=== PATIENT | female | born 1960 | race African-American/Black ===

== ENCOUNTER 2024-03-06 22:49 | Emergency (ER) | payer MEDICAID ==
[~2024-03-06] VITALS: Ht 162.6 cm; Wt 165.0 kg
[~2024-03-06 22:49] MED LIST: ALLO-52 PO; AMLO1TAB22 PO; ASPI-543 PO; AUG875T PO; BUSP5TAB78 PO; CARI-578 PO; FLUO10TA18 PO; FURO40TA4 PO; GABA-1251 PO; HYDR-2595 PO; MORP30TA PO; OMEP20TA PO; OXY10CRT PO; PANT1INJ3 PO; PRED20TA2 PO
[2024-03-06 22:55] VITALS: PULSE 179; RESP 27; O2SAT 95
[2024-03-06] MEDS: KETAMINE 50mg/ML 10ml Vial (500mg/10ml) IV ONE (22:56)
[2024-03-06 23:17] LABS: Basophils # (auto) 0 10 ^3/uL (0-0.2); Eosinophils # (auto) 0 10 ^3/uL (0-0.8); Hemoglobin 17.3 g/dL (12.2-16.2)
[2024-03-06 23:19] LABS: Basophils % (auto) 0.3 % (0.0-2.0); Lymphocytes # (auto) 0.5 10 ^3/uL (0.4-5.4); Lymphocytes % (auto) 14.9 % (10.0-50.0); Mean Corpuscular Hemoglobin 31.2 pg (28.0-32.0); Mean Corpuscular Hgb Conc. 32.7 g/dL (32.0-36.0); Mean Corpuscular Volume 95.3 fL (80.0-100.0); Monocytes # (auto) 0.3 10 ^3/uL (0-1.3); Monocytes % (auto) 9.8 % (0.0-12.0); Neutrophils # (auto) 2.4 10 ^3/uL (1.6-8.6); Nucleated Red Blood Cells % 0.7 %; Platelet Count (auto) 86 10^3/uL (140-450); Red Blood Cells 5.56 10^6/uL (4.0-5.20); Red Cell Distribution Width 23.2 % (11.8-14.3); White Blood Cell 3.2 10^3/uL (4.4-10.8)
[2024-03-06] MEDS: IPRATROPIUM BROM 0.5 MG/2.5ML INH SOL NEB ONE (23:23)
[2024-03-06] MEDS: ALBUTEROL SULF 2.5 MG/0.5ML(0.5%) NEB SOLN NEB ONE (23:23)
[2024-03-06] MEDS: FUROSEMIDE 40 MG/4 ML VIAL IV ONE (23:36)
[2024-03-06] MEDS: dilTIAZem 125mg/125ml BAG KIT 125 ML IV ONE (23:37)
[2024-03-06 23:45] LABS: Alanine Aminotransferase 22 U/L (7-40); Albumin 4.7 g/dL (3.2-4.8); Alkaline Phosphatase 112 U/L (46-116); Anion Gap 4 (5-15); Aspartate Aminotransferase 18 U/L (13-40); BUN/Creatinine Ratio 20.3 (10.0-20.0); Bilirubin, Total 3.3 mg/dL (0.2-1.0); Blood Urea Nitrogen 26 mg/dL (9-23); Calcium 9.8 mg/dL (8.7-10.4); Carbon Dioxide 27 mmol/L (20-30); Chloride 105 mmol/L (98-107); Glucose 127 mg/dL (74-106); Potassium 4.2 mmol/L (3.5-5.1); Sodium 136 mmol/L (136-145)
[2024-03-06 23:46] LABS: Total Protein 8.4 g/dL (5.7-8.2)
[2024-03-07] VITALS (13 sets, daily range): BP systolic 95–121; BP diastolic 61–79; PULSE 88–107; RESP 15–20; TEMP 98; O2SAT 75–97
[2024-03-07 00:02] LABS: Lactic Acid w/Reflex 2.9 mmol/L (0.4-2.0)
[2024-03-07 00:10] LABS: Urine Bacteria None Seen /hpf (None Seen)
[2024-03-07 00:20] LABS: Urine Blood 2+ /uL (Negative); Urine Budding Yeast OCCASIONAL /hpf (None Seen); Urine Clarity Turbid (Clear); Urine Color Yellow (Yellow); Urine Hyaline Cast MANY /lpf (0 - 2); Urine Mucus FEW (None Seen); Urine Protein, UAD 2+ (Negative); Urine Specific Gravity 1.018 (1.001-1.035); Urine Urobilinogen 2 mg/dL (Negative); Urine WBC 14 /hpf (0 - 5); Urine pH 5.5 (5.0-9.0)
[2024-03-07] MEDS: KETAMINE 50mg/ML 10ml Vial (500mg/10ml) IV ONE (00:42)
[2024-03-07] MEDS: AZITHROMYCIN 500MG/ 250ML 250 ML IV ONE (02:06)
[2024-03-07] MEDS: CEFEPIME 2GM/50ML NS 50 ML IV ONE (02:06)
[2024-03-07] MEDS: FUROSEMIDE 100 MG/10ML VIAL IV ONE (02:08)
[2024-03-07] MEDS ORDERED: hydrALAZINE HCL 20 MG/ML VL IV PRN (02:45)
[2024-03-07] MEDS ORDERED: DOCUSATE SOD 100 MG CAP PO PRN (02:45)
[2024-03-07] MEDS ORDERED: MORPHINE SULFATE INJ 2 MG/ml SYRG IV PRN (02:45)
[2024-03-07] MEDS ORDERED: NITROGLYCERIN 0.4 MG SL TAB SL PRN (02:45)
[2024-03-07] MEDS ORDERED: ONDANSETRON HCL 4 MG/2 ML VIAL IV PRN (02:45)
[2024-03-07] MEDS ORDERED: ACETAMINOPHEN 325 MG TAB PO PRN (02:45)
[2024-03-07 04:32] LABS: Basophils # (auto) 0 10 ^3/uL (0-0.2); Basophils % (auto) 0.1 % (0.0-2.0); Eosinophils # (auto) 0 10 ^3/uL (0-0.8); Hematocrit 48.2 % (36.0-46.0); Hemoglobin 15.8 g/dL (12.2-16.2); Lymphocytes # (auto) 0.1 10 ^3/uL (0.4-5.4); Lymphocytes % (auto) 1.9 % (10.0-50.0); Mean Corpuscular Hgb Conc. 32.8 g/dL (32.0-36.0); Mean Corpuscular Volume 94.5 fL (80.0-100.0); Neutrophils # (auto) 4.6 10 ^3/uL (1.6-8.6); Nucleated Red Blood Cells % 0.2 %; Platelet Count (auto) 85 10^3/uL (140-450); Red Blood Cells 5.11 10^6/uL (4.0-5.20); Red Cell Distribution Width 21.8 % (11.8-14.3); White Blood Cell 5.7 10^3/uL (4.4-10.8)
[2024-03-07 04:48] LABS: Alanine Aminotransferase 20 U/L (7-40); Alkaline Phosphatase 96 U/L (46-116); Aspartate Aminotransferase 16 U/L (13-40); BUN/Creatinine Ratio 21.6 (10.0-20.0); Blood Urea Nitrogen 27 mg/dL (9-23); Calcium 9.9 mg/dL (8.7-10.4); Carbon Dioxide 32 mmol/L (20-30); Chloride 105 mmol/L (98-107); Glucose 114 mg/dL (74-106); Potassium 3.9 mmol/L (3.5-5.1); Sodium 136 mmol/L (136-145)
[2024-03-07 04:49] LABS: Bilirubin, Total 3.3 mg/dL (0.2-1.0); Total Protein 7.3 g/dL (5.7-8.2)
[2024-03-07 04:51] LABS: Anion Gap 0 (5-15)
[2024-03-07] MEDS: methylPREDNISolone SOD SUCC 125 MG/2 ML VL IV SCH ×2 (06:06→08:45)
[2024-03-07] MEDS: SODIUM CHLOR 0.9% PF (SALINE LOCK) 10ML VIAL/SYR IV SCH (06:06)
[2024-03-07] MEDS: Surgicel PA 2X3 INCH TOP ONE (06:35)
[2024-03-07 09:08] LABS: Amphetamine Screen, Urine Neg (NEGATIVE); Barbiturate Scree,Urine Neg (NEGATIVE); Benzodiazephine Screen, Urine Neg (NEGATIVE); Cannabinoid Screen, Urine Pos (NEGATIVE); Cocaine Screen, Urine Neg (NEGATIVE); Opiate Scree,Urine Pos (NEGATIVE); Phencyclidine Screen, Urine Neg (NEGATIVE)
[2024-03-07 09:31] LABS: Base Excess 7.3 mmol/L (-2.0-3.0)
[2024-03-07] MEDS: ASPirin 81 mg TAB PO SCH (10:00)
[2024-03-07] MEDS: CARVEDILOL 12.5 MG TAB PO SCH (10:00)
[2024-03-07 10:15] LABS: COVID19 ANTIGEN SOFIA FIA NEGATIVE (NEGATIVE)
[2024-03-07 10:16] LABS: Rapid Influenza A Negative (Negative); Rapid Influenza B Negative (Negative)
[2024-03-07] MEDS: FAMOTIDINE (10MG/ML) 2ML VL IV SCH (10:18)
[2024-03-07] MEDS: FUROSEMIDE 40 MG/4 ML VIAL IV SCH (10:19)
[2024-03-07] MEDS ORDERED: FURO80TA3 PO (10:58)
[2024-03-07] MEDS ORDERED: FLUO1TAB14 PO (10:58)
[2024-03-07] MEDS ORDERED: AMLO1TAB23 PO (10:58)
[2024-03-07] MEDS ORDERED: ALL100T PO (10:58)
[2024-03-07] MEDS ORDERED: POTA-220 PO (10:59)
[2024-03-07] MEDS: NOREPINEPHRINE 8 MG/250ML KIT 250 ML IV SCH (12:45)
[2024-03-07] MEDS: AMIODARONE BOLUS KIT 100 ML IV ONE (13:45)
[2024-03-07] MEDS: AMIODARONE 450mg/250ml AE 250 ML IV SCH ×2 (14:08→20:30)
[2024-03-07] MEDS: KETAMINE 50mg/ML 10ml Vial 10 ML ONE (15:37)
[2024-03-07] MEDS: OXYCODONE W/ ACETAMINOPHEN 5/325MG TABLET PO PRN (17:36)
[2024-03-07] MEDS: LORazepam 2MG/ML-1ML VIAL IV ONE (20:01)
[2024-03-07] MEDS: methylPREDNISolone SOD SUCC 40 MG/ML VL IV SCH (22:00)
[2024-03-07] MEDS: AZITHROMYCIN 500MG/ 250ML 250 ML IV SCH (22:00)
[2024-03-08] VITALS (7 sets, daily range): BP systolic 118; BP diastolic 76; PULSE 94–108; RESP 20–22; TEMP 98.6; O2SAT 92–99
[2024-03-08] MEDS ORDERED: LORazepam 2MG/ML-1ML VIAL IV PRN (02:00)
[2024-03-08 04:18] LABS: Hematocrit 46.6 % (36.0-46.0); Hemoglobin 15.6 g/dL (12.2-16.2); Mean Corpuscular Hemoglobin 31.3 pg (28.0-32.0); Mean Corpuscular Hgb Conc. 33.6 g/dL (32.0-36.0); Mean Corpuscular Volume 93.2 fL (80.0-100.0); Platelet Count (auto) 68 10^3/uL (140-450); Red Cell Distribution Width 21.9 % (11.8-14.3)
[2024-03-08 04:28] LABS: Alanine Aminotransferase 21 U/L (7-40); Albumin 4.2 g/dL (3.2-4.8); Alkaline Phosphatase 92 U/L (46-116); Anion Gap 1 (5-15); Aspartate Aminotransferase 20 U/L (13-40); BUN/Creatinine Ratio 24.4 (10.0-20.0); Blood Urea Nitrogen 33 mg/dL (9-23); Carbon Dioxide 33 mmol/L (20-30); Chloride 104 mmol/L (98-107); Glucose 104 mg/dL (74-106); Potassium 4.2 mmol/L (3.5-5.1); Sodium 138 mmol/L (136-145)
[2024-03-08 04:29] LABS: Bilirubin, Total 3.8 mg/dL (0.2-1.0); Total Protein 7.3 g/dL (5.7-8.2)
[2024-03-08 04:30] LABS: Band Neutrophils % (manual) 0; Basophils % (manual) 0 (0.0-2.0); Blast Cells 0; Eosinophils % (manual) 0 (0-7); Metamyelocytes % 0; Myelocytes % 0; Promyelocytes % 0; Reactive Lymphocytes 0
[2024-03-08 04:53] LABS: Lymphocytes % (manual) 9 (10.0-50.0); Monocytes % (manual) 10 (0-12)
[2024-03-08 04:54] LABS: Anisocytosis Slight; Large Platelets MODERA; Platelet Estimate Decrea; Target Cell FEW
[2024-03-08 04:55] LABS: Stomatocytes Few
[2024-03-08] MEDS: ALBUTEROL SULF 2.5 MG/0.5ML(0.5%) NEB SOLN NEB PRN (06:13)
[2024-03-08] MEDS: IPRATROPIUM BROM 0.5 MG/2.5ML INH SOL NEB PRN (06:13)
[2024-03-08] MEDS: FLUoxetine HCL 20 MG CAP PO SCH (10:05)
[2024-03-08] MEDS: NICOTINE 14 MG/24HR TOPICAL PATCH TD SCH (10:07)
== END 2024-03-08 16:09 | disposition left against medical advice (07) ==
LOC: ER 22:49 → EDBD 22:49 → UNDOADMIN 03-07 02:32 → TELE 03-07 02:32 → ER 03-08 16:09
DX: J96.20 Acute and chronic respiratory failure, unspecified whether with hypoxia or hypercapnia (principal); I50.43 Acute on chronic combined systolic (congestive) and diastolic (congestive) heart failure; J18.9 Pneumonia, unspecified organism; E87.79 Other fluid overload; I48.91 Unspecified atrial fibrillation; J44.0 Chronic obstructive pulmonary disease with (acute) lower respiratory infection; J96.21 Acute and chronic respiratory failure with hypoxia; Z79.82 Long term (current) use of aspirin; Z79.899 Other long term (current) drug therapy; Z88.5 Allergy status to narcotic agent; Z20.822 Contact with and (suspected) exposure to COVID-19
CPT/HCPCS: 36415; 36556; 36600; 71045; 73590; 78582; 80053; 80307; 81001; 82805; 83036; 83605; 83735; 83880; 84443; 84484; 85007; 85025; 85027; 85379; 87086; 87426; 87804; 93005; 93970; 94640; 94660; 96365; 96367; 96375; 99291; 99292; J0282; J0456; J0692; J1940; J2060; J2919; J3490; G0378

== ENCOUNTER 2024-03-30 00:45 | Inpatient (IN) | payer MEDICAID ==
[~2024-03-30] VITALS: Ht 172.7 cm; Wt 123.0 kg
[2024-03-30] VITALS (53 sets, daily range): BP systolic 40–196; BP diastolic 20–164; PULSE 99–157; RESP 13–97; TEMP 97–98.2; O2SAT 59–100
[2024-03-30] MEDS: ALBUMIN 25% 100 ML IV SCH
[~2024-03-30 00:45] MED LIST changes: +ALL100T PO; -ALLO-52 PO; -AMLO1TAB22 PO; +AMLO1TAB23 PO; -AUG875T PO; -CARI-578 PO; -FLUO10TA18 PO; +FLUO1TAB14 PO; -FURO40TA4 PO; +FURO80TA3 PO; -HYDR-2595 PO; -MORP30TA PO; -PANT1INJ3 PO; +POTA-220 PO; -PRED20TA2 PO
[2024-03-30 01:18] LABS: Basophils # (auto) 0 10 ^3/uL (0-0.2); Basophils % (auto) 0.3 % (0.0-2.0); Eosinophils # (auto) 0 10 ^3/uL (0-0.8); Eosinophils % (auto) 0.1 % (0.0-7.0); Hematocrit 50.2 % (36.0-46.0); Hemoglobin 17.4 g/dL (12.2-16.2); Lymphocytes # (auto) 0.2 10 ^3/uL (0.4-5.4); Mean Corpuscular Hemoglobin 32.5 pg (28.0-32.0); Mean Corpuscular Hgb Conc. 34.7 g/dL (32.0-36.0); Mean Corpuscular Volume 93.6 fL (80.0-100.0); Monocytes # (auto) 0.5 10 ^3/uL (0-1.3); Monocytes % (auto) 10.8 % (0.0-12.0); Neutrophils % (auto) 84.8 % (37.0-80.0); Platelet Count (auto) 197 10^3/uL (140-450); Red Blood Cells 5.36 10^6/uL (4.0-5.20); Red Cell Distribution Width 23.3 % (11.8-14.3); White Blood Cell 4.8 10^3/uL (4.4-10.8)
[2024-03-30] MEDS: SODIUM CHLORIDE 0.9% 1,000 ML IV ONE ×3 (01:19→20:00)
[2024-03-30 01:34] LABS: Alanine Aminotransferase 13 U/L (7-40); Alkaline Phosphatase 180 U/L (46-116); Anion Gap 7 (5-15); Aspartate Aminotransferase 15 U/L (13-40); BUN/Creatinine Ratio 20.9 (10.0-20.0); Bilirubin, Total 4.8 mg/dL (0.2-1.0); Calcium 9.7 mg/dL (8.7-10.4); Carbon Dioxide 27 mmol/L (20-30); Chloride 92 mmol/L (98-107); Glucose 106 mg/dL (74-106); Lipase 21 U/L (12-53); Sodium 126 mmol/L (136-145); Total Protein 7.9 g/dL (5.7-8.2)
[2024-03-30] MEDS: ONDANSETRON HCL 4 MG/2 ML VIAL IV ONE (01:40)
[2024-03-30] MEDS: VANCOMYCIN 1GM/200ML 200 ML IV ONE (01:40)
[2024-03-30 01:41] LABS: Blood Urea Nitrogen 104 mg/dL (9-23); Potassium 6.8 mmol/L (3.5-5.1)
[2024-03-30 02:10] LABS: Urine Bacteria FEW /hpf (None Seen); Urine Blood Negative /uL (Negative); Urine Budding Yeast MODERATE /hpf (None Seen); Urine Clarity Turbid (Clear); Urine Color Dark-Yellow (Yellow); Urine Hyaline Cast MOD /lpf (0 - 2); Urine Mucus FEW (None Seen); Urine Protein, UAD 1+ (Negative); Urine Specific Gravity 1.021 (1.001-1.035); Urine Urobilinogen 8 mg/dL (Negative); Urine WBC 1 /hpf (0 - 5)
[2024-03-30] MEDS: SODIUM BICARB 8.4% 50Meq/50ml SYR Vial IV ONE (02:52)
[2024-03-30] MEDS: DEXTROSE (50%) 50ML SYRG IV ONE ×4 (02:52→13:00)
[2024-03-30] MEDS: CALCIUM GLUC 1,000mg/50ml-NS 50 ML IV SCH (02:52)
[2024-03-30] MEDS: InsuLIN REG 1unit/0.01ml Soln (100units/ml) IV ONE ×3 (02:52→13:03)
[2024-03-30] MEDS: SODIUM BICARB 50mEq/50ml Vial 150 ML in D5W 5% 1,000 ML IV ONE ×2 (03:15→23:00)
[2024-03-30] MEDS: AMIODARONE BOLUS KIT 100 ML IV ONE (08:23)
[2024-03-30] MEDS: NOREPINEPHRINE 8 MG/250ML KIT 250 ML IV ONE (08:25)
[2024-03-30] MEDS: NOREPINEPHRINE 8 MG/250ML KIT 250 ML IV SCH (08:39)
[2024-03-30] MEDS: ALBUTEROL SULF 2.5 MG/0.5ML(0.5%) NEB SOLN NEB ONE ×2 (08:43→13:59)
[2024-03-30] MEDS: CALCIUM GLUC 1,000mg/50ml-NS 50 ML IV ONE (09:00)
[2024-03-30] MEDS: SODIUM BICARB 8.4% 50Meq/50ml SYR INJ IV ONE ×2 (09:19→13:12)
[2024-03-30] MEDS: FUROSEMIDE 20 MG/2 ML VIAL IV ONE (09:26)
[2024-03-30] MEDS ORDERED: ALBUTEROL SULF 2.5 MG/0.5ML(0.5%) NEB SOLN NEB PRN (09:45)
[2024-03-30] MEDS ORDERED: NITROGLYCERIN 0.4 MG SL TAB SL PRN (09:45)
[2024-03-30] MEDS ORDERED: MORPHINE SULFATE INJ 2 MG/ml SYRG IV PRN (09:45)
[2024-03-30] MEDS: MULTIPLE VITAMIN TAB PO SCH (10:00)
[2024-03-30] MEDS: ENOXAPARIN SOD 30 MG/0.3 ML SYRINGE SC SCH (10:00)
[2024-03-30] MEDS: PANTOPRAZOLE 40 MG/10 ML VIAL INJ IV SCH (10:00)
[2024-03-30] MEDS: ZINC SULFATE 220mg CAP or TAB PO SCH (10:00)
[2024-03-30] MEDS: ASCORBIC ACID 500 MG TAB PO SCH (10:00)
[2024-03-30] MEDS ORDERED: VASOPRESSIN 20 UNITS in SODIUM CHL 0.9% 99 ML IV SCH (10:00)
[2024-03-30] MEDS: AMIODARONE 450mg/250ml AE 250 ML IV SCH ×2 (10:09→16:00)
[2024-03-30 10:16] LABS: Chloride 100 mmol/L (98-107)
[2024-03-30] MEDS: ALBUTEROL SULF 2.5 MG/0.5ML(0.5%) NEB SOLN NEB SCH (10:16)
[2024-03-30] MEDS: IPRATROPIUM BROM 0.5 MG/2.5ML INH SOL NEB SCH (10:16)
[2024-03-30 10:17] LABS: Anion Gap 9 (5-15); Basophils # (auto) 0 10 ^3/uL (0-0.2); Basophils % (auto) 0.3 % (0.0-2.0); Calcium 9.3 mg/dL (8.7-10.4); Carbon Dioxide 23 mmol/L (20-30); Eosinophils # (auto) 0 10 ^3/uL (0-0.8); Eosinophils % (auto) 0.1 % (0.0-7.0); Hematocrit 48.5 % (36.0-46.0); Hemoglobin 16.5 g/dL (12.2-16.2); Lymphocytes # (auto) 0.1 10 ^3/uL (0.4-5.4); Lymphocytes % (auto) 4.3 % (10.0-50.0); Mean Corpuscular Hemoglobin 31.8 pg (28.0-32.0); Mean Corpuscular Volume 93.7 fL (80.0-100.0); Monocytes # (auto) 0.3 10 ^3/uL (0-1.3); Monocytes % (auto) 8.3 % (0.0-12.0); Neutrophils # (auto) 2.9 10 ^3/uL (1.6-8.6); Nucleated Red Blood Cells % 3.2 %; Platelet Count (auto) 181 10^3/uL (140-450); Red Blood Cells 5.18 10^6/uL (4.0-5.20); Red Cell Distribution Width 23.3 % (11.8-14.3); White Blood Cell 3.3 10^3/uL (4.4-10.8)
[2024-03-30] MEDS: methylPREDNISolone SOD SUCC 125 MG/2 ML VL IV ONE (10:21)
[2024-03-30] MEDS: PANTOPRAZOLE 40 MG/10 ML VIAL INJ IV ONE (10:21)
[2024-03-30 10:22] LABS: BUN/Creatinine Ratio 21.3 (10.0-20.0); Glucose 68 mg/dL (74-106); Triglycerides 99 mg/dL (< 150)
[2024-03-30] MEDS: HEPARIN SODIUM (PORCINE) 5000 UNITS/ML 1ML VIAL SC SCH (10:22)
[2024-03-30 10:23] LABS: LDL Cholesterol 24 mg/dL (< 100)
[2024-03-30 10:24] LABS: Cholesterol 66 mg/dL (< 200); HDL Cholesterol 18 mg/dL (40-59)
[2024-03-30 10:31] LABS: Sodium 132 mmol/L (136-145)
[2024-03-30 10:33] LABS: Blood Urea Nitrogen 105 mg/dL (9-23); Potassium 6.4 mmol/L (3.5-5.1)
[2024-03-30 10:35] LABS: INR 1.86 (0.9-1.15); Partial Thromboplastin Time 36.1 SEC (24.5-34.5); Prothrombin Time 18.8 sec (9.3-11.8)
[2024-03-30 10:45] LABS: Anisocytosis Slight
[2024-03-30 10:46] LABS: Platelet Estimate Adequate; Target Cell FEW
[2024-03-30 10:57] LABS: Lactic Acid w/Reflex 2.1 mmol/L (0.4-2.0)
[2024-03-30] MEDS ORDERED: VANCOMYCIN PER PHARMACY 0 MG IV SCH (11:15)
[2024-03-30] MEDS ORDERED: VANCOMYCIN 1GM/200ML 200 ML IV ONE (11:15)
[2024-03-30] MEDS: CEFEPIME 1GM/ 50ML 50 ML IV ONE (12:05)
[2024-03-30 12:15] LABS: Base Excess -3.6 mmol/L (-2.0-3.0)
[2024-03-30] MEDS: VASOPRESSIN 20 UNITS in SODIUM CHL 0.9% 99 ML IV SCH (12:30)
[2024-03-30] MEDS: FUROSEMIDE 40 MG/4 ML VIAL IV ONE (12:35)
[2024-03-30] MEDS: LIDOCAINE 1% HCL (LOCAL ANESTH.) INJ 20ML MDV ONE (12:54)
[2024-03-30] MEDS: SODIUM BICARB 50mEq/50ml Vial 50 ML in SOD CHL 0.45% 1,000 ML IV SCH (13:00)
[2024-03-30] MEDS: LIDOCAINE 1% HCL (LOCAL ANESTH.) INJ 20ML MDV ID ONE (13:00)
[2024-03-30 13:04] LABS: Magnesium 1.8 mg/dL (1.6-2.6)
[2024-03-30 13:05] LABS: Phosphorus 6.8 mg/dL (2.4-5.1)
[2024-03-30 13:52] LABS: Chloride 100 mmol/L (98-107); Sodium 132 mmol/L (136-145)
[2024-03-30 13:53] LABS: Anion Gap 9 (5-15); Carbon Dioxide 23 mmol/L (20-30)
[2024-03-30] MEDS: SODIUM ZIRCONIUM CYCL 10 GM PAK PO ONE (13:54)
[2024-03-30] MEDS: DEXTROSE 50% SYRINGE 50 ML IV ONE (13:56)
[2024-03-30 13:58] LABS: BUN/Creatinine Ratio 17.7 (10.0-20.0); Glucose 151 mg/dL (74-106)
[2024-03-30 14:01] LABS: Blood Urea Nitrogen 89 mg/dL (9-23); Potassium 5.8 mmol/L (3.5-5.1)
[2024-03-30] MEDS: LACTULOSE 10g/15ml SOLN 473ML PR ONE (14:15)
[2024-03-30 15:49] LABS: Base Excess -4.3 mmol/L (-2.0-3.0)
[2024-03-30] MEDS: MIDAZOLAM DRIP 50 mg/50mL 50 ML IV ONE (16:42)
[2024-03-30] MEDS: ETOMIDATE (2MG/ML) 20ML VIAL IV ONE ×2 (16:45→20:54)
[2024-03-30] MEDS: fentaNYL Drip 2500mCg/250mlNS 250 ML IV SCH (16:45)
[2024-03-30] MEDS: ROCURONIUM 10MG/ML 10ML VIAL IV ONE ×2 (16:45→20:54)
[2024-03-30] MEDS: HYDROCORTISONE SOD SUCC 100 MG/2ML INJ VIAL IV ONE (17:15)
[2024-03-30] MEDS ORDERED: PHENYLEPHRINE IV 250 ML IV SCH (17:30)
[2024-03-30] MEDS ORDERED: EPINEPHrine HCL 250 ML IV SCH (17:30)
[2024-03-30] MEDS: LACTULOSE 10g/15ml SOLN 473ML PR SCH (18:00)
[2024-03-30] MEDS: EPINEPHrine HCL INJECTION 16 MG in D5W 5% 234 ML IV SCH (18:30)
[2024-03-30] MEDS: PHENYLEPHRINE INJ 80 MG in SODIUM CHL 0.9% 242 ML IV SCH (18:30)
[2024-03-30] MEDS: NOREPINEPHRINE BITARTRATE 32 MG in SODIUM CHL 0.9% 218 ML IV SCH (18:30)
[2024-03-30] MEDS: DOPamine 1600MCG/ML D5W 250 ML IV SCH (19:15)
[2024-03-30] MEDS: DOBUTamine 1000MCG/ML 250 ML IV SCH (19:15)
[2024-03-30] MEDS: LACTATED RINGER'S 1,000 ML IV SCH (19:45)
[2024-03-30] MEDS: HYDROCORTISONE SOD SUCC 100 MG/2ML INJ VIAL ONE (20:00)
[2024-03-30] MEDS: EPINEPHrine HCL 250 ML IV ONE (20:00)
[2024-03-30] MEDS: PHENYLEPHRINE IV 250 ML IV ONE ×2 (20:00)
[2024-03-30] MEDS: SODIUM BICARB 8.4% 50Meq/50ml SYR INJ ONE (20:00)
[2024-03-30] MEDS: fentaNYL Drip 2500mCg/250mlNS 250 ML IV ONE (20:54)
[2024-03-30] MEDS: ALBUMIN 25% 200 ML IV ONE (21:09)
[2024-03-30 21:11] LABS: Base Excess -4.7 mmol/L (-2.0-3.0)
[2024-03-30] MEDS: SODIUM CHL 0.9% 1000 ML BAG XX ONE (21:15)
[2024-03-30] MEDS: HYDROCORTISONE SOD SUCC 100 MG/2ML INJ VIAL IV SCH (22:00)
[2024-03-30] MEDS: MIDAZOLAM DRIP 50 mg/50mL 50 ML IV SCH (23:45)
[2024-03-31] VITALS (101 sets, daily range): BP systolic 76–134; BP diastolic 47–118; PULSE 71–169; RESP 7–42; TEMP 97.3–102.7; O2SAT 38–91
[2024-03-31] MEDS ORDERED: AMIODARONE BOLUS KIT 50 ML IV ONE (00:30)
[2024-03-31] MEDS: AMIODARONE BOLUS KIT 100 ML IV ONE ×2 (00:41→00:42)
[2024-03-31 01:24] LABS: Chloride 96 mmol/L (98-107); Sodium 130 mmol/L (136-145)
[2024-03-31 01:25] LABS: Base Excess -4.7 mmol/L (-2.0-3.0)
[2024-03-31 01:25] LABS: Anion Gap 14 (5-15); Calcium 8.7 mg/dL (8.7-10.4); Carbon Dioxide 20 mmol/L (20-30)
[2024-03-31] MEDS: VANCOMYCIN 1GM/200ML 200 ML IV SCH (01:28)
[2024-03-31 01:30] LABS: BUN/Creatinine Ratio 20.2 (10.0-20.0); Glucose 150 mg/dL (74-106)
[2024-03-31 01:31] LABS: Magnesium 1.8 mg/dL (1.6-2.6)
[2024-03-31 01:59] LABS: Blood Urea Nitrogen 82 mg/dL (9-23); Potassium 5.6 mmol/L (3.5-5.1)
[2024-03-31] MEDS: MAGNESIUM SULFATE 1GM/100ML 100 ML IV ONE (02:59)
[2024-03-31] MEDS: MAGNESIUM SULFATE 1GM/100ML 100 ML IV SCH (03:00)
[2024-03-31] MEDS: SODIUM ZIRCONIUM CYCL 10 GM PAK PO ONE ×2 (03:42→14:30)
[2024-03-31] MEDS: SODIUM BICARB 50mEq/50ml Vial 150 ML in D5W 5% 1,000 ML IV SCH (04:03)
[2024-03-31 04:28] LABS: Hematocrit 47.1 % (36.0-46.0); Hemoglobin 15.6 g/dL (12.2-16.2); Mean Corpuscular Hemoglobin 31.7 pg (28.0-32.0); Mean Corpuscular Hgb Conc. 33.2 g/dL (32.0-36.0); Mean Corpuscular Volume 95.6 fL (80.0-100.0); Platelet Count (auto) 165 10^3/uL (140-450); Red Blood Cells 4.93 10^6/uL (4.0-5.20)
[2024-03-31 04:42] LABS: Alanine Aminotransferase 15 U/L (7-40); Albumin 3.8 g/dL (3.2-4.8); Alkaline Phosphatase 118 U/L (46-116); Anion Gap 21 (5-15); Aspartate Aminotransferase 32 U/L (13-40); Bilirubin, Total 4.4 mg/dL (0.2-1.0); Blood Urea Nitrogen 74 mg/dL (9-23); Calcium 8.7 mg/dL (8.7-10.4); Carbon Dioxide 15 mmol/L (20-30); Chloride 94 mmol/L (98-107); Glucose 133 mg/dL (74-106); Sodium 130 mmol/L (136-145); Total Protein 6.8 g/dL (5.7-8.2)
[2024-03-31 04:58] LABS: Red Cell Distribution Width 23.3 % (11.8-14.3)
[2024-03-31 04:59] LABS: Basophils % (manual) 0 (0.0-2.0); Blast Cells 0; Eosinophils % (manual) 0 (0-7); Myelocytes % 0; Promyelocytes % 0; Reactive Lymphocytes 0
[2024-03-31 06:41] LABS: Anisocytosis Slight; Band Neutrophils % (manual) 41; Large Platelets FEW; Lymphocytes % (manual) 3 (10.0-50.0); Metamyelocytes % 1; Monocytes % (manual) 6 (0-12); Platelet Estimate Adequate; Target Cell MODERATE
[2024-03-31 07:00] LABS: Base Excess -10.4 mmol/L (-2.0-3.0)
[2024-03-31] MEDS: AMIODARONE 450mg/250ml AE 250 ML IV ONE (07:42)
[2024-03-31] MEDS: CEFEPIME 1GM/ 50ML 50 ML IV SCH (10:08)
[2024-03-31] MEDS: ALBUTEROL SULF 2.5 MG/0.5ML(0.5%) NEB SOLN NEB ONE (12:39)
[2024-03-31] MEDS: CALCIUM GLUC 1,000mg/50ml-NS 50 ML IV ONE ×2 (13:00→13:24)
[2024-03-31] MEDS: FUROSEMIDE 20 MG/2 ML VIAL IV ONE (13:15)
[2024-03-31] MEDS: ACETAMINOPHEN 325 MG TAB PO PRN (13:15)
[2024-03-31] MEDS: SODIUM BICARB 8.4% 50Meq/50ml SYR INJ IV ONE ×2 (13:16→23:30)
[2024-03-31] MEDS: DEXTROSE (50%) 50ML SYRG IV ONE (13:16)
[2024-03-31] MEDS: InsuLIN REG 1unit/0.01ml Soln (100units/ml) IV ONE (13:18)
[2024-03-31 13:55] LABS: Lactic Acid w/Reflex 12.5 mmol/L (0.4-2.0)
[2024-03-31] MEDS: SODIUM CHL 0.9% 1000 ML BAG XX ONE (14:30)
[2024-03-31 15:30] LABS: Urine Bacteria None Seen /hpf (None Seen)
[2024-03-31 15:41] LABS: Sodium Urine 88 mmol/L (40-220)
[2024-03-31 15:42] LABS: Urine Blood 3+ /uL (Negative); Urine Budding Yeast LOADED /hpf (None Seen); Urine Clarity Ex.Turbid (Clear); Urine Color Yellow (Yellow); Urine Hyaline Cast MANY /lpf (0 - 2); Urine Mucus FEW (None Seen); Urine Protein, UAD 1+ (Negative); Urine Specific Gravity 1.012 (1.001-1.035); Urine Urobilinogen 2 mg/dL (Negative); Urine WBC 64 /hpf (0 - 5)
[2024-03-31] MEDS ORDERED: HYDROCORTISONE SOD SUCC 100 MG/2ML INJ VIAL IV ONE (15:45)
[2024-03-31 15:48] LABS: Amphetamine Screen, Urine Neg (NEGATIVE); Barbiturate Scree,Urine Neg (NEGATIVE); Benzodiazephine Screen, Urine Neg (NEGATIVE); Cannabinoid Screen, Urine Pos (NEGATIVE); Cocaine Screen, Urine Neg (NEGATIVE); Opiate Scree,Urine Pos (NEGATIVE); Phencyclidine Screen, Urine Neg (NEGATIVE)
[2024-03-31 15:49] LABS: Creatinine, Urine 50.78 mg/dL (30.0-125.0)
[2024-03-31] MEDS ORDERED: ALBUMIN 25% 100 ML IV SCH (16:00)
[2024-03-31] MEDS: MEROPENEM 1GM IVPB 50 ML IV ONE (16:00)
[2024-03-31] MEDS: LACTULOSE 10g/15ml SOLN 473ML GT SCH (16:15)
[2024-03-31] MEDS: ALBUMIN 25% 50 ML IV ONE (16:39)
[2024-03-31 18:48] LABS: Lactic Acid w/Reflex 6.7 mmol/L (0.4-2.0)
[2024-03-31] MEDS: LACTULOSE 20Gm/30ML SOLN PO ONE (19:30)
[2024-03-31 20:39] LABS: Lactic Acid w/Reflex 11.3 mmol/L (0.4-2.0)
[2024-03-31] MEDS: HYDROCORTISONE SOD SUCC 100 MG/2ML INJ VIAL IV SCH (21:41)
[2024-03-31] MEDS: MEROPENEM 500MG IVPB 50 ML IV SCH (21:47)
[2024-03-31] MEDS ORDERED: HYDROCORTISONE SOD SUCC 100 MG/2ML INJ VIAL IV SCH (22:00)
[2024-03-31 22:18] LABS: Magnesium 2.2 mg/dL (1.6-2.6)
[2024-03-31 22:35] LABS: Base Excess -12.9 mmol/L (-2.0-3.0)
[2024-04-01] VITALS (105 sets, daily range): BP systolic 68–99; BP diastolic 46–77; PULSE 68–101; RESP 15–40; TEMP 97.8–100.2; O2SAT 59–98
[2024-04-01] MEDS: DEXTROSE (50%) 50ML SYRG IV ONE ×3 (00:01→19:07)
[2024-04-01] MEDS: InsuLIN REG 1unit/0.01ml Soln (100units/ml) IV ONE ×3 (00:03→18:30)
[2024-04-01] MEDS: ALBUTEROL SULF 2.5 MG/0.5ML(0.5%) NEB SOLN NEB ONE ×3 (00:18→18:49)
[2024-04-01] MEDS: LACTULOSE 20Gm/30ML SOLN NG SCH (00:18)
[2024-04-01 00:31] LABS: Lactic Acid w/Reflex 12.4 mmol/L (0.4-2.0)
[2024-04-01 05:00] LABS: Lactic Acid w/Reflex 11.8 mmol/L (0.4-2.0)
[2024-04-01 05:01] LABS: Alanine Aminotransferase 873 U/L (7-40); Albumin 3.7 g/dL (3.2-4.8); Alkaline Phosphatase 125 U/L (46-116); Anion Gap 25 (5-15); BUN/Creatinine Ratio 17.2 (10.0-20.0); Bilirubin, Total 8.8 mg/dL (0.2-1.0); Blood Urea Nitrogen 68 mg/dL (9-23); Carbon Dioxide 12 mmol/L (20-30); Chloride 93 mmol/L (98-107); Glucose 108 mg/dL (74-106); Sodium 130 mmol/L (136-145); Total Protein 6.3 g/dL (5.7-8.2)
[2024-04-01 05:10] LABS: Hematocrit 47.4 % (36.0-46.0); Hemoglobin 15.1 g/dL (12.2-16.2); Mean Corpuscular Hemoglobin 31.6 pg (28.0-32.0); Platelet Count (auto) 101 10^3/uL (140-450); Red Blood Cells 4.79 10^6/uL (4.0-5.20); White Blood Cell 26.9 10^3/uL (4.4-10.8)
[2024-04-01 05:30] LABS: Aspartate Aminotransferase 3866 U/L (13-40)
[2024-04-01 05:34] LABS: Red Cell Distribution Width 23.5 % (11.8-14.3)
[2024-04-01 05:35] LABS: Basophils % (manual) 0 (0.0-2.0); Blast Cells 0; Eosinophils % (manual) 0 (0-7); Myelocytes % 0; Promyelocytes % 0; Reactive Lymphocytes 0
[2024-04-01 07:13] LABS: Base Excess -15.4 mmol/L (-2.0-3.0)
[2024-04-01 08:22] LABS: Anisocytosis Slight; Band Neutrophils % (manual) 46; Lymphocytes % (manual) 8 (10.0-50.0); Metamyelocytes % 1; Monocytes % (manual) 6 (0-12)
[2024-04-01 08:23] LABS: Large Platelets FEW; Platelet Estimate Decrea; Tear Drop Cells FEW
[2024-04-01] MEDS: SODIUM BICARB 8.4% 50Meq/50ml SYR INJ IV ONE ×2 (08:41→19:07)
[2024-04-01] MEDS: FUROSEMIDE 20 MG/2 ML VIAL IV ONE ×2 (08:44→18:30)
[2024-04-01] MEDS: SODIUM ZIRCONIUM CYCL 10 GM PAK PO ONE (08:45)
[2024-04-01] MEDS: CALCIUM GLUC 1,000mg/50ml-NS 50 ML IV ONE ×2 (08:50→19:07)
[2024-04-01] MEDS: SODIUM BICARB 8.4% 50Meq/50ml SYR Vial IV ONE (10:18)
[2024-04-01 11:11] LABS: Lactic Acid w/Reflex > 15.5 mmol/L (0.4-2.0)
[2024-04-01 12:33] LABS: Chloride 92 mmol/L (98-107); Sodium 132 mmol/L (136-145)
[2024-04-01 12:34] LABS: Anion Gap 24 (5-15); Carbon Dioxide 16 mmol/L (20-30)
[2024-04-01 12:35] LABS: Calcium 8.8 mg/dL (8.7-10.4)
[2024-04-01 12:39] LABS: BUN/Creatinine Ratio 18.9 (10.0-20.0); Blood Urea Nitrogen 77 mg/dL (9-23); Glucose 116 mg/dL (74-106)
[2024-04-01 12:54] LABS: Potassium 6.1 mmol/L (3.5-5.1)
[2024-04-01] MEDS: SODIUM BICARB 50mEq/50ml Vial 150 ML in D5W 5% 1,000 ML IV SCH (16:59)
[2024-04-02] VITALS (79 sets, daily range): BP systolic 27–111; BP diastolic 20–76; PULSE 0–99; RESP 18–47; TEMP 98.4–101.2; O2SAT 83–100
[2024-04-02 00:24] LABS: Chloride 93 mmol/L (98-107); Sodium 131 mmol/L (136-145)
[2024-04-02 00:25] LABS: Anion Gap 18 (5-15); Calcium 8.1 mg/dL (8.7-10.4); Carbon Dioxide 20 mmol/L (20-30)
[2024-04-02 00:30] LABS: Glucose 193 mg/dL (74-106)
[2024-04-02 01:08] LABS: Blood Urea Nitrogen 96 mg/dL (9-23)
[2024-04-02 01:09] LABS: BUN/Creatinine Ratio 22.8 (10.0-20.0)
[2024-04-02 03:52] LABS: Hemoglobin 14.3 g/dL (12.2-16.2); Mean Corpuscular Hemoglobin 31.5 pg (28.0-32.0)
[2024-04-02 03:58] LABS: Hematocrit 43.1 % (36.0-46.0); Mean Corpuscular Hgb Conc. 33.1 g/dL (32.0-36.0); Mean Corpuscular Volume 95.3 fL (80.0-100.0); Platelet Count (auto) 65 10^3/uL (140-450); Red Blood Cells 4.52 10^6/uL (4.0-5.20); White Blood Cell 29.3 10^3/uL (4.4-10.8)
[2024-04-02 04:09] LABS: Alanine Aminotransferase 893 U/L (7-40); Albumin 3.2 g/dL (3.2-4.8); Alkaline Phosphatase 183 U/L (46-116); Anion Gap 21 (5-15); Calcium 7.9 mg/dL (8.7-10.4); Carbon Dioxide 18 mmol/L (20-30); Chloride 91 mmol/L (98-107); Glucose 197 mg/dL (74-106); Sodium 130 mmol/L (136-145)
[2024-04-02 04:10] LABS: Bilirubin, Total 10.7 mg/dL (0.2-1.0); Total Protein 5.6 g/dL (5.7-8.2)
[2024-04-02 04:18] LABS: Basophils % (manual) 0 (0.0-2.0); Blast Cells 0; Metamyelocytes % 0; Myelocytes % 0; Promyelocytes % 0; Reactive Lymphocytes 0
[2024-04-02 04:25] LABS: BUN/Creatinine Ratio 21.5 (10.0-20.0)
[2024-04-02 04:30] LABS: Blood Urea Nitrogen 89 mg/dL (9-23)
[2024-04-02 04:31] LABS: Potassium 6.1 mmol/L (3.5-5.1)
[2024-04-02 04:48] LABS: Aspartate Aminotransferase 3119 U/L (13-40)
[2024-04-02] MEDS: SODIUM BICARB 8.4% 50Meq/50ml SYR INJ IV ONE (05:00)
[2024-04-02] MEDS: CALCIUM GLUC 1,000mg/50ml-NS 50 ML IV ONE (05:12)
[2024-04-02] MEDS: DEXTROSE (50%) 50ML SYRG IV ONE ×2 (05:15→08:15)
[2024-04-02 05:39] LABS: Anisocytosis Slight; Band Neutrophils % (manual) 2; Eosinophils % (manual) 1 (0-7); Lymphocytes % (manual) 1 (10.0-50.0); Monocytes % (manual) 1 (0-12); Platelet Estimate Decreased
[2024-04-02 05:40] LABS: Large Platelets FEW; Target Cell MODERATE; Tear Drop Cells FEW
[2024-04-02] MEDS: InsuLIN REG 1unit/0.01ml Soln (100units/ml) IV ONE ×2 (06:09→08:15)
[2024-04-02 06:42] LABS: Base Excess -2.5 mmol/L (-2.0-3.0)
[2024-04-02] MEDS: DOPamine 3200MCG/ML 250 ML IV SCH (07:00)
[2024-04-02] MEDS: ALBUMIN 25% 100 ML IV ONE (07:30)
[2024-04-02] MEDS: SODIUM CHL 0.9% 1000 ML BAG XX ONE (07:30)
[2024-04-02] MEDS ORDERED: CALCIUM GLUC 1,000mg/50ml-NS 50 ML IV ONE (08:15)
[2024-04-02] MEDS: SODIUM ZIRCONIUM CYCL 10 GM PAK PO ONE (08:15)
[2024-04-02] MEDS: FUROSEMIDE 20 MG/2 ML VIAL IV ONE (08:15)
[2024-04-02] MEDS: ALBUTEROL SULF 2.5 MG/0.5ML(0.5%) NEB SOLN NEB ONE (08:15)
[2024-04-02] MEDS ORDERED: MORPHINE SULFATE INJ 2 MG/ml SYRG IV PRN (17:00)
[2024-04-02] MEDS ORDERED: LORazepam 2MG/ML-1ML VIAL IV ONE (17:00)
[2024-04-02] MEDS ORDERED: EPOETIN ALFA-EPBX 10,000 UNIT/1ML VIAL SC ONE (21:00)
[2024-04-03 08:35] LABS: Hepatitis B Surface Antibody Negative (Negative)
[2024-04-03 08:47] LABS: Hepatitis B Surface Antigen Negative (Negative)
== END 2024-04-03 03:18 | DRG 720 ==
LOC: ER 00:45 → EDBD 00:45 → TELE 09:55 → ICU WEST 14:48
PROVIDERS: ADMIT Internal Medicine; ATTEND Internal Medicine
PROC: 05HM33Z Insertion of Infusion Device into Right Internal Jugular Vein, Percutaneous Approach (ICD-10-PCS; principal; 2024-03-30)
PROC: 5A1945Z Respiratory Ventilation, 24-96 Consecutive Hours (ICD-10-PCS; 2024-03-30)
PROC: 06HY33Z Insertion of Infusion Device into Lower Vein, Percutaneous Approach (ICD-10-PCS; 2024-03-30)
PROC: 0BH17EZ Insertion of Endotracheal Airway into Trachea, Via Natural or Artificial Opening (ICD-10-PCS; 2024-03-30)
PROC: 03HY32Z Insertion of Monitoring Device into Upper Artery, Percutaneous Approach (ICD-10-PCS; 2024-03-30)
PROC: 02HV33Z Insertion of Infusion Device into Superior Vena Cava, Percutaneous Approach (ICD-10-PCS; 2024-03-30)
PROC: B548ZZA Ultrasonography of Superior Vena Cava, Guidance (ICD-10-PCS; 2024-03-30)
PROC: 5A09357 Assistance with Respiratory Ventilation, Less than 24 Consecutive Hours, Continuous Positive Airway Pressure (ICD-10-PCS; 2024-03-30)
PROC: 5A1D70Z Performance of Urinary Filtration, Intermittent, Less than 6 Hours Per Day (ICD-10-PCS; 2024-03-30)
PROC: 5A1D70Z Performance of Urinary Filtration, Intermittent, Less than 6 Hours Per Day (ICD-10-PCS; 2024-03-31)
PROC: 5A1D70Z Performance of Urinary Filtration, Intermittent, Less than 6 Hours Per Day (ICD-10-PCS; 2024-04-02)
DX: A41.50 Gram-negative sepsis, unspecified (principal); J96.21 Acute and chronic respiratory failure with hypoxia; R65.21 Severe sepsis with septic shock; G93.41 Metabolic encephalopathy; I50.33 Acute on chronic diastolic (congestive) heart failure; J18.9 Pneumonia, unspecified organism; J44.0 Chronic obstructive pulmonary disease with (acute) lower respiratory infection; E87.20 Acidosis, unspecified; E87.1 Hypo-osmolality and hyponatremia; I13.0 Hypertensive heart and chronic kidney disease with heart failure and stage 1 through stage 4 chronic kidney disease, or unspecified chronic kidney disease; J44.1 Chronic obstructive pulmonary disease with (acute) exacerbation; E11.22 Type 2 diabetes mellitus with diabetic chronic kidney disease; Z66 Do not resuscitate; E66.01 Morbid (severe) obesity due to excess calories; E87.5 Hyperkalemia; H54.8 Legal blindness, as defined in USA; J96.22 Acute and chronic respiratory failure with hypercapnia; I48.91 Unspecified atrial fibrillation; M10.9 Gout, unspecified; E78.5 Hyperlipidemia, unspecified; N17.9 Acute kidney failure, unspecified; N28.1 Cyst of kidney, acquired; F17.200 Nicotine dependence, unspecified, uncomplicated; N18.9 Chronic kidney disease, unspecified; Z82.5 Family history of asthma and other chronic lower respiratory diseases; Z82.49 Family history of ischemic heart disease and other diseases of the circulatory system; Z99.81 Dependence on supplemental oxygen; Z83.3 Family history of diabetes mellitus; Z68.36 Body mass index [BMI] 36.0-36.9, adult; S81.809A Unspecified open wound, unspecified lower leg, initial encounter; B96.89 Other specified bacterial agents as the cause of diseases classified elsewhere
CPT/HCPCS: 36415; 36600; 71045; 76700; 80048; 80053; 80061; 80202; 80307; 81001; 82140; 82248; 82306; 82570; 82805; 82962; 83605; 83690; 83735; 83880; 83930; 83935; 83970; 84100; 84132; 84156; 84300; 84443; 84484; 85007; 85025; 85027; 85610; 85730; 86706; 87040; 87070; 87077; 87081; 87086; 87088; 87186; 87205; 87340; 90935; 93005; 93925; 93970; 94002; 94003; 94640; 94660; 96365; 96375; G0378; J0171; J1265; J1642; J1815; J2001; J2185; J2405; J2470; J7060; P9047